=== PATIENT | male | born 1945 | race Caucasian/White ===

== ENCOUNTER 2019-12-25 12:50 | Inpatient (IN) | payer MEDICARE, SELFPAY ==
[2019-12-25] VITALS (10 sets, daily range): BP systolic 127–239; BP diastolic 73–116; PULSE 63–98; RESP 18–20; TEMP 36.3–36.9; O2SAT 92–100; BMI 28.5
--- NOTE | ~2019-12-25 | CT_ITS ---
EXAMINATION: CTA brain carotid DATE: 12/25/2019 14:55 CDT INDICATION: Slurred speech. Retention. TECHNIQUE: Computed tomographic angiography (CTA) of the head was performed without and with 100 mL O mnipaque-350 intravenous contrast. CTA of the neck was performed with intravenous contrast. The dose- length product was 1810.65 mGy-cm. Maximum intensity projection and volume rendered 3D-reconstruction s were created by the technologist on a separate workstation. COMPARISON: None. FINDINGS: HEAD CTA: Generalized atrophy. There is a right parietal craniotomy defect with underlying encephalom alacia. There are scattered moderate periventricular and subcortical white matter changes, most likel y related to small vessel ischemic disease (microangiopathy). Basilar cisterns are patent. No ventric ulomegaly or midline shift. No acute intracranial hemorrhage, infarction, mass or mass effect. Midlin e sagittal images are unremarkable. There is mucosal thickening of the ethmoid and sphenoid sinuses. Mastoids are pneumatized. No depressed skull fractures. There is a white sinusitis. There are atherosclerotic changes of the vertebral arteries which remain patent. The anterior, middle and posterior cerebral arteries are symmetric. No evidence for aneurysm, significant stenosis or occ lusion. There is atherosclerotic change in the carotid siphons. NECK CTA: There is mild atherosclerosis in the carotid arteries was 0% stenosis in the internal carot id arteries bilaterally. IMPRESSION: 1. No acute intracranial abnormality. 2: Atherosclerotic changes without significant stenosis, occlusion or aneurysm of the carotid or intr acranial arteries. 3: Right parietal craniotomy defect with underlying encephalomalacia. 4: Chronic age-related findings. 5: Ethmoid sinusitis. Reviewed, dictated and finalized at location A. IMPRESSION: 1. No acute intracranial abnormality. 2: Atherosclerotic changes without significant stenosis, occlusion or aneurysm of the carotid or intracranial arteries. 3: Right parietal craniotomy defect with underlying encephalomalacia. 4: Chronic age-related findings. 5: Ethmoid sinusitis.
--- NOTE | ~2019-12-25 | MR_ITS ---
EXAMINATION: MR brain/brain stem wo/w con DATE: 12/25/2019 18:50 INDICATION: Speech deficit. TECHNIQUE: Magnetic resonance imaging (MRI) of the brain and brainstem was performed without and with 17 L MultiHance intravenous contrast. Sequences included sagittal and axial T1-weighted FSE, axial d iffusion-weighted FS EPI, axial T2*-weighted GRE, axial T2-weighted FLAIR Propeller, and axial T2-wes ghted Propeller. Postcontrast sequences included axial and coronal T1-weighted FSE. Apparent diffusio n coefficient (ADC) maps were created. COMPARISON: Head CTA 12/25/2019 FINDINGS: There is chronic encephalomalacia in right parietal lobes adjacent to a craniotomy defect. There is an acute infarct involving the left basal ganglia and posterior limb left internal capsule. There are scattered areas of nonspecific increased T2-weighted signal intensity in the cerebral white matter. There is no acute intracranial hemorrhage or abnormal mass lesion. The ventricles are normal in size. There is mucosal thickening in the paranasal sinuses. There is a trace right mastoid effusi on. The orbits are normal. IMPRESSION: 1. Acute infarct involving the left basal ganglia and posterior limb left internal capsule. 2. Chronic encephalomalacia in the right parietal lobe. 3. Moderate nonspecific cerebral white matter disease, which likely represents chronic small vessel i schemic disease. Reviewed, dictated and finalized at location A. IMPRESSION: 1. Acute infarct involving the left basal ganglia and posterior limb left inter nal capsule. 2. Chronic encephalomalacia in the right parietal lobe. 3. Moderate nonspecific cerebral white matter disease, which likely represents chronic small vessel ischemic disease.
--- NOTE | ~2019-12-25 | US_ITS ---
EXAMINATION: US carotid duplex BI DATE: 12/26/2019 11:04 INDICATION: CVA. Vision abnormality. Difficulty with speech. TECHNIQUE: Grayscale, color Doppler, and pulsed Doppler images of the cervical carotid arteries were obtained. The degree of vessel stenosis is placed in one of the following categories: normal, <50%, 5 0-69%, >=70% but less than near-occlusion, near-occlusion, or total occlusion. Note that percent sten osis relative to normal distal artery lumen diameter is indirectly measured from velocity measurement s as described by Tj, et al. Radiology 2003; 229:340-346. Notes: Normal: Peak systolic velocity <125 centimeters/sec and no plaque <50%. Peak systolic velocity <125 ( EDV <40; ICA/CCA PSV ratio <2.0; used these factors only a tandem lesions or low cardiac output or co ntralateral disease) 50-69 %: PSV 125-230 (EDV 40-100; ratio 2-4) >= 70% but less than near occlusion: PSV greater than 230 (EDV > 100; ratio> 4.0) Near Occlusion: PSV that is variable; markedly narrowed lumen Occlusion: Absent flow on color/spectral Doppler and no lumen on viveros scale. COMPARISON: None. FINDINGS: RIGHT: The right common carotid artery (CCA) peak systolic velocity (PSV) is 104 cm/s. The right internal ca rotid artery (ICA) PSV is 106 cm/s. The right ICA end-diastolic velocity (EDV) is 13 cm/s. The right ICA/CCA PSV ratio is 1. The external carotid artery (ECA) PSV is 169 cm/s. There is antegrade flow in the right vertebral artery. LEFT: The left CCA PSV is 140 cm/s. The left ICA PSV is 122 cm/s. The left ICA EDV is 25 cm/s. The left ICA /CCA PSV ratio is 0.9. The ECA PSV is 109 cm/s. There is antegrade flow in the left vertebral artery . IMPRESSION: 1. Less than 50% stenosis in the right internal carotid artery by sonographic criteria. 2. Less than 50% stenosis in the left internal carotid artery by sonographic criteria. Reviewed, dictated and finalized at location A. IMPRESSION: 1. Less than 50% stenosis in the right internal carotid artery by sonographic nhi honeycutt. 2. Less than 50% stenosis in the left internal carotid artery by sonographic dariel brock.
--- NOTE | ~2019-12-25 | XR_ITS ---
MODIFIED ESOPHAGRAM HISTORY: Dysphagia. New CVA. TECHNIQUE: Modified barium esophagram was performed by speech pathologist under radiologist fluorosco pic guidance. This was recorded on tape. The exam was reviewed on 12/26/2019 10:51 CDT. The DAP for this procedure was 1.3 Gycm2. Fluoroscopy time is 1.2 minutes. FINDINGS: Lateral projection of the cervical spine demonstrates normal alignment. Normal esophageal swallowing function. During pharyngeal phase there is trace laryngeal penetration without aspiration . Esophageal phase is normal.. IMPRESSION: 1: Trace penetration without aspiration. 2: Please refer to speech pathologist report for additional detail. Reviewed, dictated and finalized at location A.
--- NOTE | ~2019-12-25 | XR_ITS ---
EXAMINATION: XR chest 1V 12/25/2019 14:38 INDICATION: CVA protocol PROCEDURE: AP view of the chest COMPARISON: No prior studies for comparison. FINDINGS: The lungs are clear. The cardiomediastinal silhouette is enlarged. Elevated right diaphrag m. Atherosclerosis of the aorta. There are no pleural effusions. There is no pneumothorax suspected. IMPRESSION: 1: NO ACUTE CARDIOPULMONARY DISEASE. Reviewed, dictated and finalized at location A.
--- NOTE | 2019-12-25 13:28 | ED.NEUROSD ---
HPI - Neuro Symptoms/Deficit General Chief Complaint: Neuro Symptoms/Deficit Stated Complaint: slurred speech/htn/since noon yesterday Time Seen by Provider: 12/25/19 13:22 Source: patient and RN notes reviewed Mode of arrival: ambulatory Limitations: no limitations History of Present Illness HPI Narrative: Pt is a 74 y/o male who presents to the ED with c/o worsening slurred speech starting yesterday. He notes that he recently went on a cruise out of [place], [place]. Pt states that during the trip, he visited the [facility], [facility], and [facility]. He notes that he returned home 7 days ago. Pt states that he first noticed his speech becoming altered yesterday. He notes that his speech became more slurred earlier today. Pt also reports a decrease in fine motor movements of his rt hand, but denies any numbness/tingling, SOB, CP, or ABD pain. He notes that he has been able to walk recently, but states that he feels unsteady while doing so. Pt notes that he is also concerned due to his BP being recently elevated. Onset (ago): day(s) (1) Location: speech Context: gradual onset Associated symptoms: other (decreased fine motor movement in rt hand; unsteady gait) Treatments Prior to Arrival: none Related Data Home Medications Medication Instructions Recorded Confirmed Combigan 1 drp OPHTHALMIC (EYE) DAILY 10/15/19 10/21/19 Lumigan 1 drp OPHTHALMIC (EYE) DAILY 10/15/19 10/21/19 atorvastatin 20 mg PO DAILY 10/15/19 10/21/19 lisinopril 20 mg PO DAILY 10/15/19 10/21/19 Allergies Allergy/AdvReac Type Severity Reaction Status Date / Time No Known Allergies Allergy Verified 10/21/19 07:50 Review of Systems Review of Systems: Narrative: CONSTITUTIONAL: Denies fever, chills, or sweats. CARDIOVASCULAR: Denies chest pain, palpitations, or edema. RESPIRATORY: Denies cough or dyspnea. GASTROINTESTINAL: Denies abdominal pain, nausea, vomiting, or diarrhea. NEUROLOGIC: Denies headache, numbness/tingling, or weakness. Reports slurred speech, decreased fine motor movement in rt hand, and unsteady gait. All systems reviewed & are unremarkable except as noted in HPI and below PMFSH Past Medical History Medical History (Updated 12/25/19 @ 16:10 by Jd Lopez) Arthritis Basal cell carcinoma Cataracts, bilateral Dyslipidemia GERD (gastroesophageal reflux disease) Glaucoma History of rectal polyps History of skin cancer Hypertension Melanoma Right rotator cuff tear Traumatic brain injury Surgical History Surgical History H/O craniotomy History of cranioplasty Hx of cataract surgery rt eye Hx of repair of right rotator cuff Social History Social History Smoking status: Never smoker Gender identity (if verbalized by the patient): Male Exam Narrative: Exam Narrative: GENERAL: Well-appearing, well-nourished, and in no acute distress. HEAD: Normocephalic, atraumatic. EYES: PERRLA and EOMI. ENT: Nares clear, no rhinorrhea or epistaxis. Mucous membranes moist. NECK: Supple. CHEST: No respiratory distress. Audible wheezing. HEART: Regular rate and rhythm. No murmur heard. Normal peripheral pulses. ABDOMEN: Soft, nontender, nondistended, normal active bowel sounds. EXTREMITIES: Normal range of motion. No edema. SKIN: Warm, dry, no rash. Neuro: Finger to nose intact bilaterally. EOMs intact without nystagmus. Mild left-sided facial droop.. Grimace intact. Intact sensation in face. Hearing intact bilaterally. Shoulder shrug intact, slightly diminished on the left. Strength 5/5 bilateral upper extremities. Strength 5/5 bilateral lower extremities. Reflexes 2+ patellar. Heel to [place] intact bilaterally. Ambulatory with a narrow base, steady gait, no ataxia. Course Course Emergency Course: Patient presented for evaluation of slurred speech, on exam he ambulatory, found to have mild left facial droop, mild decrease in strength in left shoulder
--- NOTE | 2019-12-25 13:40 | ECG_ITS ---
Measurements Intervals [place] Rate: 63 P: 68 VA: 191 QRS: -3 QRSD: 115 T: 57 QT: 425 QTc: 435 Interpretive Statements SINUS RHYTHM INTRAVENTRICULAR CONDUCTION DELAY DELAYED PRECORDIAL R/S TRANSITION BASELINE ARTIFACT- II, III, AVF BORDERLINE ECG Electronically Signed On 12-25-2019 15:26:31 CDT by Colt Austin D.O.
--- NOTE | 2019-12-25 13:46 | PC.NURSE ---
patient presents to er with report of his blood pressure being high despite taking all prescribed medications. also reports that his family noted some slurred speech about 2 days ago. patient denies headache. patient reports that he just returned home last week from a cruise to [place]. denies fever/ or shortness of breath
[2019-12-25 13:53] LABS: Basophils Absolute Auto 0.1 K/mm3 (0.0-0.1); Basophils Percent Auto 0.6 % (0.2-1.2); Eosinophils Absolute Auto 0.4 K/mm3 (0-0.3); Eosinophils Percent Auto 4.4 % (0-4.4); Hematocrit 47.4 % (42.0-52.0); Immature Granulocyte Absolute 0.06 K/mm3 (0.00-0.031); Immature Granulocyte Percent A 0.6 % (0-0.5); Lymphocytes Absolute Auto 3.39 K/mm3 (0.9-3.2); Lymphocytes Percent Auto 36.4 % (18.3-44.2); Mean Corpuscular HGB Conc 33.8 g/dl (32-36); Mean Corpuscular Hemoglobin 31.4 pg (26-34); Mean Corpuscular Volume 92.9 fl (80-100); Mean Platelet Volume 10.4 fl (7.4-10.4); Monocytes Absolute Auto 1.1 K/mm3 (0.1-0.6); Monocytes Percent Auto 11.8 % (2.6-8.5); Neutrophils Absolute Auto 4.3 K/mm3 (1.3-6.7); Neutrophils Percent Auto 46.2 % (45.5-73.1); Platelet Count Result 186 k/mm3 (150-375); Red Cell Distribution Width 11.9 % (11.5-14.5); White Blood Count 9.3 K/mm3 (4.5-10.0)
[2019-12-25] MEDS: hydrALAZINE HCL 20 MG/ML VIAL 10 MG IV PUSH ×2 (14:03→15:14)
[2019-12-25 14:04] LABS: Prothrombin Time 12.5 Seconds (11.1-14.7)
[2019-12-25 14:05] LABS: Blood Urea Nitrogen 13 mg/dL (9-20); Calcium 9.2 mg/dL (8.4-10.2); Carbon Dioxide 34 mmol/L (22-30); Chloride 101 mmol/L (98-107); Estimated Glomerular Filt Rate > 60; Glucose 76 mg/dL (75-110); Partial Thromboplastin Time 27.5 SECONDS (22.3-36.8); Potassium 3.7 mmol/L (3.4-5.0); Sodium 139 mmol/L (137-145)
[2019-12-25 14:16] LABS: Troponin I < 0.012 ng/mL (0.000-0.034)
[2019-12-25 14:17] LABS: Estimated Glomerular Filt Rate > 60
[2019-12-25 14:59] LABS: Add Urine Microscopic? NO; Appearance Urine Clear (Clear); Bilirubin Urine Negative (Negative); Blood Urine Negative (Negative); Color Urine Colorless (Yellow); Glucose Urine UA Negative (Negative); Ketones Urine Negative (Negative); Leukocyte Esterase Ur Negative LEU/UL (Negative); Nitrate Urine Negative (Negative); Protein Urine Negative (Negative); Specific Grav Ur 1.024 (1.001-1.035); Urobilinogen Urine Negative mg/dL (<2.0)
[2019-12-25] MEDS: hydrALAZINE HCL 20 MG/ML VIAL IV PUSH (16:36)
--- NOTE | 2019-12-25 18:28 | ADMGEN ---
This patient, Ivan Green Jr., was admitted to Medical Room 346-01. Patient/family oriented to hospital policies and general routines including ID bracelet, bed and alarms, visiting hours, pain management, procedures, bathroom and other care routines, personal items, smoking policy, room service/diet, and visiting hours. Valuables list has been completed. Information on how to activate the Rapid Response Team has been discussed. Patient/Family are encouraged to report perceived risks to care and to ask questions if they do not understand what they are told or what they should do.
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
[2019-12-26] VITALS (10 sets, daily range): BP systolic 132–220; BP diastolic 62–90; PULSE 65–87; RESP 16–20; TEMP 37–37.2; O2SAT 92–100
--- NOTE | 2019-12-26 | ECHO_ITS ---
Patient Info Name: Ivan Green Age: 74 years : 1945 Gender: Male Ht: 69 in Wt: 198 lbs BSA: 2.11 m2 HR: 67 bpm BP: 164 / 77 mmHg Heart Rhythm: Sinus Rhythm Technical Quality: Good Exam Date: 12/26/2019 7:58 AM Exam Location: 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 Summary 1. Left ventricular systolic function is normal, estimated at 60-65%. 2. There is mildly increased left ventricular wall thickness. 3. The left ventricular diastolic function is grade I diastolic dysfunction. 4. Left atrial chamber dimension is mildly enlarged. 5. The tricuspid valve leaflets are thickened. Mobile echodensity most likely thickened tricuspid valve leaflet versus artifact, less likely vegetation given minimal regurgitation. However, clinical correlation advised. Consider NINFA if clinically indicated. 6. There is trace tricuspid valve regurgitation. 7. There is mild mitral valve regurgitation. 8. The mitral valve annulus is mildly calcified. 9. There is trace aortic valve regurgitation. 10. There is no aortic valve stenosis. 11. Unable to estimate PA systolic pressure due to poor spectral resolution of tricuspid regurgitant jet velocity. 12. No evidence of intracardiac shunt with injection of agitated saline with and without Valsalva. Left Ventricle Left ventricular chamber dimension is normal. Left ventricular systolic function is normal, estimated at 60-65%. There is mildly increased left ventricular wall thickness. The left ventricular diastolic function is grade I diastolic dysfunction. Global longitudinal strain is mildly elevated at -15 %. Right Ventricle Right ventricular chamber dimension is normal. Right ventricular systolic function is normal. Left Atria Left atrial chamber dimension is mildly enlarged. Right Atria Right atrial chamber dimension is normal. Atrial Septum No evidence of intracardiac shunt with injection of agitated saline with and without Valsalva. Aortic Valve The aortic valve is trileaflet. There is no aortic valve stenosis. There is trace aortic valve regurgitation. Pulmonic Valve The pulmonic valve is not well visualized. There is trace pulmonic regurgitation. Mitral Valve The mitral valve has thickened leaflets. There is mild mitral valve regurgitation. The mitral valve annulus is mildly calcified. Tricuspid Valve The tricuspid valve leaflets are thickened. Mobile echodensity most likely thickened tricuspid valve leaflet versus artifact, less likely vegetation given minimal regurgitation. However, clinical correlation advised. Consider NINFA if clinically indicated. There is trace tricuspid valve regurgitation. Unable to estimate PA systolic pressure due to poor spectral resolution of tricuspid regurgitant jet velocity. Pericardium/Pleural The pericardium appears normal. There is no pericardial effusion. Inferior Vena Cava Normal inferior vena cava with >50% collapse upon inspiration consistent with normal right atrial pressure, 5 mmHg. Aorta The aortic root size at
[2019-12-26 06:07] LABS: Alanine Aminotransferase 17 U/L (4-50); Albumin Level 3.9 g/dL (3.5-5.1); Alkaline Phosphatase 64 U/L (38-126); Aspartate Amino Transferase 19 U/L (17-59); Bilirubin,Total 0.7 mg/dL (0.2-1.3); Blood Urea Nitrogen 15 mg/dL (9-20); Calcium 9.1 mg/dL (8.4-10.2); Carbon Dioxide 30 mmol/L (22-30); Chloride 101 mmol/L (98-107); Estimated CRCL calculation 64 ml/min; Estimated Glomerular Filt Rate > 60; Glucose 101 mg/dL (75-110); Sodium 136 mmol/L (137-145)
[2019-12-26] MEDS: ASPIRIN 81 MG CHEWABLE TABLET PO (09:20)
[2019-12-26] MEDS: ATORVASTATIN 40 MG TABLET PO (09:21)
[2019-12-26] MEDS: BRIMONIDINE TARTRATE 0.2% OP SOLN 5 ML BTL 1 DROP EACH EYE (09:21)
[2019-12-26] MEDS: LATANOPROST 0.005% OP SOLN 2.5 ML BTL 1 DROP EACH EYE (09:22)
[2019-12-26] MEDS: TIMOLOL MALEATE 0.5% OP SOLN 5 ML BTL 1 DROP EACH EYE (09:26)
[2019-12-26] MEDS: hydrALAZINE HCL 20 MG/ML VIAL 5 MG IV PUSH ×2 (09:57→22:10)
[2019-12-26] MEDS: lisinopriL 20 MG TABLET PO (10:58)
--- NOTE | 2019-12-26 12:58 | PM.IMPN ---
Progress Note: A&P Assessment and Plan (1) Cerebrovascular accident: Qualifiers: CVA mechanism: unspecified Qualified Code(s): I63.9 - Cerebral infarction, unspecified Code(s): I63.9 - Cerebral infarction, unspecified Status: Acute Assessment and Plan: Brain MRI shows an acute infarct involving left basal ganglia and posterior limb of the left internal capsule. CT of the carotids demonstrated some atherosclerotic changes but no significant stenosis. Stroke presumably due to uncontrolled blood pressures, however patient states they have never been that high previously. Will continue 40 mg atorvastatin dose and schedule aspirin. Continue PT/OT/ST Patient would like to return home; will see how well patient progresses with PT/OT and potentially send home with outpatient PT/OT/ST. PT/OT already recommending outpatient therapy Monitor for symptoms Dr. Lauren has been consulted and appreciate input Consider NOAC at discharge; will await Neurology recommendations (2) Hypertensive urgency: Code(s): I16.0 - Hypertensive urgency Status: Acute Assessment and Plan: Patient states compliance with his antihypertensives. He tells me he checks his BP at home but states his wrist BP cuff is inaccurate but unable to go into more detail. Reportedly, his blood pressures have never been this high before. BP 180s this afternoon. Per nursing; his manual systolic pressure this morning was in 220s sys and hydralazine was given. Will allow permissive hypertension for remainder of the day but will attempt to reduce BP slowly tomorrow by increasing lisinopril tomorrow if still consistently elevated Hydralazine as needed for severe hypertension. Monitor overnight Will plan on discharge once BP more reasonably controlled (3) Hyperlipidemia: Code(s): E78.5 - Hyperlipidemia, unspecified Status: Acute Assessment and Plan: Continue atorvastatin at 40 mg daily LFTS WNL (4) Glaucoma: Code(s): H40.9 - Unspecified glaucoma Status: Acute Assessment and Plan: Patient may use eye drops from home. Subjective Date/time seen: 12/26/19 12:58 Interval history: Patient is a 74 yo M with history of hypertension and hyperlipidemia who is here for evaluation for acute CVA found on MRI imaging. Patient states he is doing okay today, although stating that his right UE strength is still present. He thinks his right LE is improved today. He denies any headaches/dizziness today. He still has slurred speech but does not have any difficulty swallowing at this moment; tolerating PO well today. He tells me he thinks he did okay with PT/OT today. He wishes to go home after being discharged from here. Otherwise patient has no other complaints. Denies f/c/s, myalgias/arthralgias, changes in v/h, cp/palpitations, acute sob/cough, n/v/d/c, abd pain, changes in BMs, dysuria, hematuria, cloudy urine, calf pain/swelling. Review of Systems Review of Systems: All systems reviewed & are unremarkable except as noted in HPI and below Exam Narrative: Exam Narrative: Patient is sitting upright in bed finishing lunch at time of visit Const: General: cooperative, comfortable, no acute distress, well developed and alert Nutritional Appearance: obese Orientation/consciousness: patient oriented x3 HENMT: Head: normal to inspection General nose exam: Normal nares present Face and sinus: face asymmetric (slight right facial droop) Mouth: Yes tongue normal and Yes moist mucous membranes Throat: posterior oropharynx normal and uvula midline Eyes: General: appearance normal, both eyes and all related structures Sclera: scleral abnormality (injected) Pupils: Equal, round and reactive pupils present EOM: EOMs intact bilaterally Neck: Neck: tra
--- NOTE | 2019-12-26 13:25 | PCSTNOTE ---
Please refer to the Modified Barium Swallow Evaluation in the EMR.
[2019-12-27] VITALS: PULSE 87
[2019-12-27 00:58] VITALS: BP 173/65; PULSE 87; RESP 16; TEMP 36.8; O2SAT 95
[2019-12-27 04:00] VITALS: BP 144/69; PULSE 76; RESP 18; TEMP 36.9; O2SAT 95
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
[2019-12-27 08:00] VITALS: BP 179/77; PULSE 85; PULSE 91; RESP 20; TEMP 36.7; O2SAT 94
[2019-12-27] MEDS: ASPIRIN 81 MG CHEWABLE TABLET PO (09:39)
[2019-12-27] MEDS: ATORVASTATIN 40 MG TABLET PO (09:39)
[2019-12-27] MEDS: TIMOLOL MALEATE 0.5% OP SOLN 5 ML BTL 1 DROP EACH EYE (09:39)
[2019-12-27] MEDS: BRIMONIDINE TARTRATE 0.2% OP SOLN 5 ML BTL 1 DROP EACH EYE (09:39)
[2019-12-27] MEDS: LATANOPROST 0.005% OP SOLN 2.5 ML BTL 1 DROP EACH EYE (09:40)
[2019-12-27] MEDS: lisinopriL 20 MG TABLET PO (09:40)
[2019-12-27 12:00] VITALS: BP 174/76; PULSE 72; PULSE 80; RESP 16; TEMP 37.2; O2SAT 95
--- NOTE | 2019-12-27 12:46 | PM.DS ---
DS: Diagnosis Admitting Diagnosis Admitting Diagnosis: Cerebral infarction, unspecified Discharge Diagnosis (1) Cerebrovascular accident: Qualifiers: CVA mechanism: unspecified Qualified Code(s): I63.9 - Cerebral infarction, unspecified Code(s): I63.9 - Cerebral infarction, unspecified Status: Acute Assessment and Plan: Brain MRI showed an acute infarct involving left basal ganglia and posterior limb of the left internal capsule. CT of the carotids demonstrated some atherosclerotic changes but no significant stenosis. Stroke presumably due to uncontrolled blood pressures, however patient states they have never been that high previously. Tele shows primarily NSR with occasional PACs with artifact noted. Echo showed tricuspid valve leaflets are thickened. Mobile echodensity most likely thickened tricuspid valve leaflet versus artifact, less likely vegetation given minimal regurgitation; No evidence of intracardiac shunt with injection of agitated saline with and without Valsalva. Will continue 40 mg atorvastatin dose and 81 mg aspirin daily Per Neurology recommendations will do Plavix 75 mg daily for 4 weeks Follow up with Dr. Lauren in 4-6 weeks Continue PT/OT/ST as outpatient Patient would like to return home Monitor for symptoms Dr. Lauren has been consulted and appreciate input (2) Hypertensive urgency: Code(s): I16.0 - Hypertensive urgency Status: Acute Assessment and Plan: Patient states compliance with his antihypertensives. He tells me he checks his BP at home but states his wrist BP cuff is inaccurate but when questioned again today, he states that he thought it was not working properly because the readings were too high. I am highly suspicious he may have been having uncontrolled HTN. Patient also states he only takes 10 mg lisinopril at home; he has been getting 20 mg during his stay. Spoke with Dr. Lauren and plan will be to continue lisinopril at 20 mg daily and he agreed to follow up with him as an outpatient for further management. D/c on 20 mg lisinopril daily Will plan on discharge once BP more reasonably controlled Will have patient follow up with nuclear reactor technician and Neurology after discharge Will instruct him to monitor his BP 1-2 times per day for further monitoring (3) Hyperlipidemia: Code(s): E78.5 - Hyperlipidemia, unspecified Status: Acute Assessment and Plan: Continue atorvastatin at 40 mg daily at discharge LFTS WNL (4) Glaucoma: Code(s): H40.9 - Unspecified glaucoma Status: Acute Assessment and Plan: Patient may use eye drops from home. DS: Summary Hospital Course Reason for hospitalization: Acute CVA Hospital Course: Patient is a 74 yo M with hypertension and hyperlipidemia who presented to the emergency department on 12/24 for evaluation of slurred speech, right-sided weakness, and elevated blood pressure. On 12/23, he had noticed his speech was a bit slurred and fine motor skills in his right hand were a bit off. His symptoms worsened on day of presentation and noted that he had a difficult time ambulating due to a weakness in his right leg. BP in the ER was as high as 239/86. Of note, during his hospital stay, he did note that he had checked his BP at home with a automatic cuff but thought that it was broken because the readings were too high on himself and his . He is compliant with his antihypertensives. In the ER, brain CT did not show acute findings, however, brain MRI did demonstarte an acute infarct involving the left basal ganglia and posterior limb left internal capsule. Please see H&P for further details. Presenting VS: Temp Pulse Resp BP Pulse Ox 97.9 F 65 18 239/86 H 100 RA 12/25/19 12:58 12/25/19 12:58 12/25/19 12:58
== END 2019-12-27 14:15 | disposition home or self-care (01) | DRG 65 ==
LOC: ANHED 16:05 → ANH3MED 16:28
PROVIDERS: Physician Assistant; Admitting Provider Internal Medicine; Emergency Provider Emergency Medicine; PCP Internal Medicine; Visit Provider Internal Medicine
DX: I63.9 Cerebral infarction, unspecified (principal); G81.91 Hemiplegia, unspecified affecting right dominant side; R47.81 Slurred speech; R29.810 Facial weakness; E78.5 Hyperlipidemia, unspecified; I16.0 Hypertensive urgency; H40.9 Unspecified glaucoma; M19.90 Unspecified osteoarthritis, unspecified site; K21.9 Gastro-esophageal reflux disease without esophagitis; H26.9 Unspecified cataract; Z87.820 Personal history of traumatic brain injury; Z85.828 Personal history of other malignant neoplasm of skin; Z98.41 Cataract extraction status, right eye
CPT/HCPCS: 36415; 70496; 70498; 70553; 71045; 80048; 80053; 81003; 84484; 85025; 85610; 85730; 92611; 93005; 93306; 93880; 96374; 96375; 96376; 97110; 97112; 97116; 97161; 97165; 97535; 99285; A9270; A9577; G0378; J0360; Q9967

== ENCOUNTER 2020-01-08 12:49 | Emergency (ER) | payer MEDICARE, SELFPAY ==
--- NOTE | ~2020-01-08 | CT_ITS ---
EXAMINATION: CT brain wo con EXAM DATE: 01/08/2020 14:31 INDICATION: Right hemiparesis, recent stroke. TECHNIQUE: Spiral CT of the head was performed without contrast. Axial, coronal and sagittal images were reviewed. The dose-length product (DLP) for this examination was 605.33 mGy-cm. The exposure w as tailored according to patient size, and iterative reconstruction (ASIR) was used as additional dos e reduction technique. Correlation is made to brain MRI examination 12/25/2019. FINDINGS: There is interval decrease in attenuation of the left basal ganglia subacute infarction, ex pected evolution. No hemorrhagic conversion. There is no acute intraparenchymal hemorrhage. No evide nce of intraparenchymal brain mass lesion. Please note that initial head CT has limited sensitivity for small or acute infarctions. There is moderate periventricular and subcortical hypodensity, nonspe cific but probably related to small vessel ischemic disease. There is right-sided craniotomy. Some underlying encephalomalacia. There is intracranial carotid arteriosclerosis. There are no extra-axi al collections. There is no mass effect or midline shift. The orbits are unremarkable. Soft tissue is unremarkable. The visualized sinuses and mastoid air cells are well aerated. IMPRESSION: 1. Subacute left basal ganglia, internal capsular infarction. 2. Chronic age related findings. Reviewed, dictated and finalized at location G.
--- NOTE | ~2020-01-08 | XR_ITS ---
EXAMINATION: XR chest 1V EXAM DATE: 01/08/2020 14:32 INDICATION: Weakness, stroke 2 weeks ago. TECHNIQUE: Portable AP frontal chest x-ray was obtained. Comparison is made to prior examination from 12/25/2019. FINDINGS: The lungs are clear. There are no pleural effusions. Cardiac silhouette is prominent but magnified on this AP technique. There is no pneumothorax suspected. There are mild bony degenerati ve changes. There is aortic arterial sclerosis. There is no significant interval change. IMPRESSION: No acute cardiopulmonary findings. Reviewed, dictated and finalized at location G.
[2020-01-08 12:50] VITALS: BP 142/71; PULSE 66; RESP 14; TEMP 36.4; O2SAT 97
[2020-01-08 12:56] VITALS: PULSE 73
--- NOTE | 2020-01-08 13:26 | ECG_ITS ---
Measurements Intervals Ulman Rate: 66 P: 24 ID: [id number] QRS: -13 QRSD: 121 T: 26 QT: 402 QTc: 422 Interpretive Statements SINUS RHYTHM BASELINE ARTIFACT- I, II, AVR, AVL, AVF, V1-V3 BORDERLINE ECG Electronically Signed On 01-08-2020 14:09:39 CDT by Colt Austin D.O.
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
[2020-01-08 14:32] LABS: Basophils Absolute Auto 0.1 K/mm3 (0.0-0.1); Basophils Percent Auto 0.6 % (0.2-1.2); Eosinophils Absolute Auto 0.3 K/mm3 (0-0.3); Eosinophils Percent Auto 2.4 % (0-4.4); Hemoglobin 15.7 g/dL (14.0-18.0); Immature Granulocyte Absolute 0.08 K/mm3 (0.00-0.031); Immature Granulocyte Percent A 0.7 % (0-0.5); Lymphocytes Percent Auto 24.2 % (18.3-44.2); Mean Corpuscular HGB Conc 34.1 g/dl (32-36); Mean Corpuscular Hemoglobin 31.9 pg (26-34); Mean Corpuscular Volume 93.5 fl (80-100); Mean Platelet Volume 10.5 fl (7.4-10.4); Monocytes Absolute Auto 1.5 K/mm3 (0.1-0.6); Monocytes Percent Auto 12.6 % (2.6-8.5); Neutrophils Absolute Auto 6.9 K/mm3 (1.3-6.7); Neutrophils Percent Auto 59.5 % (45.5-73.1); Platelet Count Result 238 k/mm3 (150-375); Red Blood Count 4.92 M/mm3 (4.6-6.20); Red Cell Distribution Width 11.8 % (11.5-14.5); White Blood Count 11.6 K/mm3 (4.5-10.0)
[2020-01-08 14:41] LABS: Partial Thromboplastin Time 25.3 SECONDS (22.3-36.8)
[2020-01-08 14:48] LABS: Blood Urea Nitrogen 23 mg/dL (9-20); Calcium 9.3 mg/dL (8.4-10.2); Carbon Dioxide 30 mmol/L (22-30); Chloride 98 mmol/L (98-107); Estimated CRCL calculation 69 ml/min; Estimated Glomerular Filt Rate > 60; Glucose 81 mg/dL (75-110); Potassium 4.1 mmol/L (3.4-5.0); Sodium 135 mmol/L (137-145)
[2020-01-08 14:49] VITALS: BP 151/76; PULSE 70; RESP 19; O2SAT 97
[2020-01-08 15:00] LABS: Troponin I < 0.012 ng/mL (0.000-0.034)
[2020-01-08 15:01] LABS: Glucose Point of Care 93 (65-105)
[2020-01-08 15:13] LABS: Add Urine Microscopic? NO; Appearance Urine Clear (Clear); Bilirubin Urine Negative (Negative); Blood Urine Negative (Negative); Color Urine Straw (Yellow); Glucose Urine UA Negative (Negative); Ketones Urine Negative (Negative); Leukocyte Esterase Ur Negative LEU/UL (Negative); Nitrate Urine Negative (Negative); Protein Urine Negative (Negative); Urobilinogen Urine Negative mg/dL (<2.0)
[2020-01-08] MEDS: SODIUM CHLORIDE 0.9% IV 500 ML 999 ML IV CONT (15:14)
[2020-01-08 16:40] VITALS: BP 174/88; BP 181/81; PULSE 71
[2020-01-08 16:41] VITALS: BP 192/71; PULSE 80
--- NOTE | 2020-01-08 16:59 | PCCCNOTE ---
Pt in ED for weakness related to stroke that occurred approx 10 days ago. CUATE Neal requested CC see pt for options regarding care. Spoke extensively to pt and regarding PT/OT options. At this time pt wary of SNF option due to current COVID pandemic. [facility] choosen by pt and . Information faxed to [facility] and spoke with them regarding urgent needs. Family appreciates the referral.
== END 2020-01-08 17:31 | disposition home or self-care (01) ==
PROVIDERS: Emergency Medicine Emergency Medical Services; Emergency Provider Emergency Medicine; PCP Internal Medicine
DX: R53.1 Weakness (principal); E78.5 Hyperlipidemia, unspecified; K21.9 Gastro-esophageal reflux disease without esophagitis; H40.9 Unspecified glaucoma; Z86.010 Personal history of colon polyps; I10 Essential (primary) hypertension; Z87.820 Personal history of traumatic brain injury; Z98.41 Cataract extraction status, right eye; Z86.73 Personal history of transient ischemic attack (TIA), and cerebral infarction without residual deficits; R94.31 Abnormal electrocardiogram [ECG] [EKG]
CPT/HCPCS: 36415; 70450; 71045; 80048; 81003; 82948; 84484; 85025; 85610; 85730; 93005; 96360; 96361; 99284; J7040

== ENCOUNTER → 2023-05-22 12:05 | Outpatient (CLI) | payer MEDICARE, SELFPAY ==
--- NOTE | ~2023-05-22 | XR_ITS ---
EXAMINATION: XR hip RT min 3V w AP pelvis INDICATION: Right hip pain TECHNIQUE: AP view the pelvis and two views of the right hip are obtained. COMPARISON: None available FINDINGS: Bone alignment is normal. There is no fracture. There is mild osteoarthritis of the hips. C alcified atherosclerosis is noted. IMPRESSION: 1. Osteoarthritis without acute osseous abnormality. Reviewed, dictated and finalized at location A.
== END ==
PROVIDERS: PCP Internal Medicine; Visit Provider Internal Medicine
DX: M16.11 Unilateral primary osteoarthritis, right hip (principal)
CPT/HCPCS: 73502

== ENCOUNTER 2023-09-21 15:00 | Outpatient (RCR) | payer MEDICARE, SELFPAY ==
--- NOTE | 2023-08-04 09:51 | OPREHPOC ---
Outpatient Therapy Plan of Care This is a Multidisciplinary Plan of Care that may contain components documented by all disciplines (PT, OT, and ST.) PT Problem 1 PT Problem #1 Knowledge Deficit PT Goal 1 Goal 1* indep with HEP PT Problem 2 PT Problem #2 Pain PT Goal 1 Goal 1* pt report pain rating at worst of 6/10 2* radicular pain into R LE to knee at worst 3* self assessment Oswestry score of 36% limitation in activity 4* pt report standing/walking tolerance of 1 hour PT Problem 3 PT Problem #3 Impaired Flexibility PT Goal 1 Goal increase hamstring flexibility to decrease pull on pelvis supine SLR 1* R 60' 2* L 55' PT Problem 4 PT Problem #4 Impaired Strength PT Goal 1 Goal 1* pt perform 20 reps of R and L LE exercises on mat with good control of motion PT Problem 5 PT Problem #5 Impaired Functional Mobility PT Goal 1 Goal 1* pt report no falls 2* 2 minute walking test distance of 350'
--- NOTE | 2023-08-04 09:52 | PTOPEVAL1 ---
Assessment and note entered by Indigo Cadena, PT Evaluation Information Assessment Status Evaluation Diagnosis R leg pain, lumbar pain Onset April 2023 Subjective Information started having more pain in April, after doing more yard work; had 3 falls and started using the cane; (previously did not use a cane); x ray of hips- mild OA; cannot step up onto curb or stairs leading with R leg--gives away and that made him fall; have used wheeled walker some too; ACTIVITY: does most of in home chores; prior to back pain and R leg, active, no assistive device; does yard work and car repairs Reported Pain Level Pain Score Self Report Additional Pain Score Comments pain range in the past week 0-10/10; radicular into R LE to foot, most pain R posterior hip decrease pain: lie on R side in bed; sit in recliner at good angle with legs elevated;over the counter meds increase pain: step up lead with R leg; instructed on PRN use of heat/ice- is not using; reported tolerances: can sleep through the night; walk/stand 30-45 min Assessment PT Clinical Summary Ivan has the diagnosis of R leg and lumbar pain, radicular into R LE to foot. Onset of pain after doing yard work. His medical history includes intermittent back pain, neuropathy of both lower legs, CVA with residual R LE weakness. x ray report states mild OA of hips. Oswestry self assessment functional score of 44% limitation in activity level. He has started using a cane or wheeled walker due to pain and has had falls due to R leg giving out. With the evaluation: decreased flexibility of both hip IR of 0' & hamstring tightness; increase pain with supine R hip IR and standing trunk extension; weakness of trunk and hips with poor motor control of LE's with walking/ foot placement 2 minute walking test distance of 270'. Skilled PT services are indicated for modalities to decrease pain, therapeutic exercises to increase trunk and hip flexibility and strength; education for home exercises and posture correction.
--- NOTE | 2023-08-31 11:50 | OPREHPOC ---
Outpatient Therapy Plan of Care This is a Multidisciplinary Plan of Care that may contain components documented by all disciplines (PT, OT, and ST.) PT Problem 1 PT Problem #1 Knowledge Deficit PT Goal 1 Goal 1* indep with HEP Progress Met Comment 08-31-23 progress met goal continue to progress HEP and education PT Problem 2 PT Problem #2 Pain PT Goal 1 Goal 1* pt report pain rating at worst of 6/10 2* radicular pain into R LE to knee at worst 3* self assessment Oswestry score of 36% limitation in activity 4* pt report standing/walking tolerance of 1 hour Progress Not Met Comment 08-31-23 progress goal 4 met, improved with #2 to proximal to ankle continue towards goals 1,2,3; PT Problem 3 PT Problem #3 Impaired Flexibility PT Goal 1 Goal increase hamstring flexibility to decrease pull on pelvis supine SLR 1* R 60' 2* L 55' Progress Met Comment 08-31-23 progress met goals NEW GOALS: hamstring length with supine SLR: 1* R 70' 2* L 65' PT Problem 4 PT Problem #4 Impaired Strength PT Goal 1 Goal 1* pt perform 20 reps of R and L LE exercises on mat with good control of motion Progress Met Comment 08-31-23 progress met goal NEW GOAL: 1* pt perform R and L LE exercises in standing with UE support x 15 reps PT Problem 5 PT Problem #5 Impaired Functional Mobil PT Goal 1 Goal 1* pt report no falls 2* 2 minute walking test distance of 350' Progress Partially Met Comment 08-31-23 progress
--- NOTE | 2023-08-31 11:50 | PTOPPROG ---
Assessment and note entered by Indigo Cadena, PT Evaluation Information Assessment Status Progress Diagnosis R leg pain, lumbar pain Onset April 2023 Subjective Information since coming for therapy, doing better on stairs; in his house do not use anything to walk, use cane going out and when walking in his neighborhood use the walker; no falls; can be up and around about one hour with shopping and using the cart; is doing the exercises at home; PAIN: range in the past week 0-10/10; radicular pain R LE to above ankle intermittent-- stairs, stepping up with R leg problems with sleeping, awaken about 3AM due to back pain; decrease pain: sit, rest, heat Assessment PT Clinical Summary Ivan has received 9 PT sessions. Compared to the initial evaluation: pain rating the same at 0-10/10; radicular pain into R LE decreased slightly from foot to above ankle; Oswestry self assessment is the same at 44% limitation in activity level; pain increases with lying on his R side, which is disrupting his sleep; increase strength of trunk and hips; increase flexibility of both hamstrings; 2 minute walking test distance increased by 20'; He continues to have pain with supine R hip IR, at anterior hip joint. The goals were partially met. Continue PT treatment. Plan of Care Interventions Electrical Stimulation,Hot Pack/Cold Pack,Manual Therapy,Neuro Re-education,Patient Education,Therapeutic Exercise,Ultrasound,Other PT Services Indicated Yes Treatment Frequency and 2x/wk for 3 weeks Duration These treatments will address the objective and functional deficits as defined above. The patient will be advanced safely and appropriately in order for the patient to progress towards his/her prior level of function. Additional exercises will be introduced and as well as a comprehensive home exercise program upon discharge, if needed, ?to ensure carryover of functional gains achieved in the clinic. This treatment plan has been reviewed and agreement upon by the patient.
--- NOTE | 2023-09-21 15:40 | PTOPDC ---
Assessment and note entered by Indigo Cadena, PT Evaluation Information Assessment Status Discharge Diagnosis R leg pain, lumbar pain Onset April 2023 Subjective Information using treadmill about 10 minutes, started last week for about 6 days, then pain in the night worse, so stopped doing it; have not had any falls; leave for cruise in 10 days; is using the walker when walking out side down his street; have been doing the exercises at home; ready to be finished with therapy for now; Reported Pain Level Pain Score 2: Self Report Additional Pain Score Comments pain range in the past week 0-10/10; radicular pain to R ankle- intermittent; R hip pain; increase pain with stepping up stairs, putting R leg first and all weight on R leg; Assessment PT Clinical Summary Ivan has received 14 PT sessions. Compared to the last reevaluation: pain rating is the same range 0-10/10 with intermittent to R ankle; 2 minute walking test distance is 25' less increase LE strength with standing LE exercises flexibility of R and L hamstring is the same; pain increase in anterior hip with R hip IR motion Oswestry functional score improved from 44% to 38% limitation in activity; Education completed for HEP. He is aware of his activity level and monitors it to manage his pain. The goals were partially met Discharge PT. To continue with HEP. Plan of Care PT Services Indicated No
== END 2023-09-21 16:48 | disposition home or self-care (01) ==
LOC: ANHPT 15:00
PROVIDERS: PCP Internal Medicine; Visit Provider Orthopaedic Surgery
DX: M79.604 Pain in right leg (principal)
CPT/HCPCS: 97014; 97110; 97140; 97161; 97530; G0283

== ENCOUNTER 2024-01-11 12:49 | Outpatient (CLI) | payer MEDICARE, SELFPAY ==
--- NOTE | ~2024-01-11 | MR_ITS ---
MRI of the lumbar spine Clinical History: Radiculopathy Technique: Axial T2-weighted images, and sagittal T1-weighted, T2-weighted, and T2 fat-sat images wer e acquired. Findings: There is no acute fracture or subluxation of the lumbar spine. Vertebral bodies maintain no rmal height and alignment. No suspicious bone marrow signal abnormalities seen. At L1-L2, there is mild degenerative disc and mild disc bulge, with mild facet arthropathy. No centra l canal stenosis. There is mild left neural foraminal narrowing. Right neural foramen preserved. At L2-L3, there is mild disc bulge and moderate facet arthropathy. No central canal stenosis or neura l foraminal narrowing. L3-L4, there is advanced degenerative disc 9. There is mild disc bulge with moderate to advanced face t arthropathy. No central canal stenosis. There is minimal right neural foraminal narrowing. Left ariadna ral foramen preserved. At L4-L5, there is minimal disc bulge and severe facet arthropathy. No central canal stenosis or neur al foraminal narrowing. At L5-S1, there is minimal disc bulge and severe facet arthropathy. No central canal stenosis or neur al foraminal narrowing. Paravertebral soft tissues are unremarkable. Impression: Mild degenerative spondylitic changes overall, as detailed above. Reviewed, dictated and finalized at [facility]. Impression: Mild degenerative spondylitic changes overall, as detailed above.
== END 2024-01-11 12:50 ==
PROVIDERS: PCP Internal Medicine; Visit Provider Internal Medicine
DX: M47.26 Other spondylosis with radiculopathy, lumbar region (principal)
CPT/HCPCS: 72148